=== PATIENT | female | born 1990 | race African-American/Black ===

== ENCOUNTER 2019-06-04 15:19 | Emergency (ER) | payer OTHER ==
[2019-06-04 17:11] LABS: #Basophils 0.1 thou/uL (0.0-0.2); #Eosinphils 0.4 thou/uL (0.0-0.7); #Lymphocytes 1.6 thou/uL (1.20-3.40); #Monocytes 0.8 thou/uL (0.11-0.59); #Neutrophils 7.7 thou/uL (1.40-6.50); %Basophils 0.8 % (0.0-1.0); %Lymphocytes 15.5 % (21.0-51.0); %Monocytes 7.2 % (0.0-10.0); %Neutrophils 72.6 % (42.0-75.0); Hemoglobin 13.1 g/dL (12.0-16.0); Mean Corpuscular HGB CONC 33.1 g/dL (32.0-36.0); Mean Corpuscular Hemoglobin 29.5 pg (27.0-31.0); Mean Corpuscular Volume 89.1 fL (78.0-98.0); Mean Platelet Volume 7.3 fL (7.4-10.4); Platelet Count 361 thou/uL (130-400); RBC Distribution Width 11.5 % (11.5-14.5); Red Blood Cell (RBC) Count 4.43 mill/uL (4.20-5.40); White Blood Cell (WBC) Count 10.5 thou/uL (4.8-10.8)
[2019-06-04 17:19] LABS: BHCG - Serum Negative (NEGATIVE); Pregs Control Background? CLEAR/WHITE (CLR/WHITE); Pregs Control Bar Appear? YES (CONTROL BAR)
[2019-06-04 17:30] LABS: ALT (SGPT) 17 U/L (8-55); AST (SGOT) 12 U/L (5-34); Alkaline Phosphatase 52 U/L (40-150); Anion Gap 10 mmol/L (10-20); BUN (Urea Nitrogen) 11 mg/dL (7.0-18.7); Bilirubin, Total 0.3 mg/dL (0.2-1.2); Calc. Creatinine Clearance 0 mL/min (70-130); Calcium 9.2 mg/dL (7.8-10.44); Carbon Dioxide 23 mmol/L (22-29); Chloride 108 mmol/L (98-107); Estimated GFR-MDRD Greater than 90; Globulin 2.8 g/dL (2.4-3.5); Glucose 86 mg/dL (70-105); Protein, Total 6.8 g/dL (6.0-8.3); Sodium 137 mmol/L (136-145)
--- NOTE | 2019-06-04 17:31 | ULT ---
PELVIC ULTRASOUND: 06/04/19 HISTORY: Patient complains of pelvic pain and cramping. COMPARISON: An 05/17/19 exam. Real time imaging of the pelvis was obtained transabdominally. It shows the uterus measuring 7 cm in length. The endometrium is in the 5 mm range. The right and left adnexal regions appear unremarkable. The complex cyst that was seen involving the right ovary has resolved. DOPPLER EVALUATION WITH SPECTRAL ANALYSIS: Normal flow is shown to the adnexal regions. IMPRESSION: Unremarkable pelvic ultrasound. POS: [facility]
[2019-06-04 17:57] LABS: Bacteria/HPF None Seen HPF (None Seen); Bilirubin Negative (Negative); Blood, Urine 2+ (Negative); Clarity Clear (Clear); Glucose, Urine (Dipstick) Normal (Negative); Leukocyte 25 Leu/uL (Negative); Nitrite Negative (Negative); Protein, Urine (Dipstick) 10 mg/dL (Neg-Trace); Urobilinogen 3 mg/dL (Less than 2); WBC/HPF 0-3 HPF (0-3)
== END 2019-06-04 18:55 | disposition home or self-care (01) ==
LOC: ERS 15:19
DX: N94.6 Dysmenorrhea, unspecified (principal)
CPT/HCPCS: 36415; 76856; 80053; 81003; 81015; 84703; 85025; 87086; 93976

== ENCOUNTER 2019-11-17 22:55 | Emergency (ER) | payer BC, OTHER | END 2019-11-17 23:29 | disposition home or self-care (01) | LOC: ERS 22:55 | DX: S13.4XXA Sprain of ligaments of cervical spine, initial encounter (principal); V89.2XXA Person injured in unspecified motor-vehicle accident, traffic, initial encounter | CPT/HCPCS: 99283 ==